=== PATIENT | female | born 1995 | race Caucasian/White ===

== ENCOUNTER 2022-12-09 12:41 | Emergency (ER) | payer BC, SELFPAY ==
[~2022-12-09] VITALS: Ht 152.4 cm; Wt 71.4 kg
[2022-12-09 12:43] VITALS: BP 142/82; TEMP 98.1; O2SAT 99
[2022-12-09] MEDS ORDERED: IBUP80TA PO (18:21)
== END 2022-12-09 18:44 | disposition home or self-care (01) ==
LOC: M ED 12:41
DX: S83.004A Unspecified dislocation of right patella, initial encounter (principal); W10.8XXA Fall (on) (from) other stairs and steps, initial encounter; Y92.009 Unspecified place in unspecified non-institutional (private) residence as the place of occurrence of the external cause

== ENCOUNTER 2022-12-14 08:57 | Emergency (ER) | payer SELFPAY ==
[~2022-12-14] VITALS: Ht 152.4 cm; Wt 71.4 kg
[~2022-12-14 08:57] MED LIST: IBUP80TA PO
[2022-12-14] MEDS ORDERED: KETOROLAC 30 MG/ML 1ML VIAL IM ONE (10:50)
[2022-12-14] MEDS ORDERED: PERCOCET 5MG/325MG TAB PO ONE (12:00)
[2022-12-14] MEDS ORDERED: PERC5TAB12 PO (12:01)
[2022-12-14] MEDS ORDERED: KETO10TAB PO (12:01)
[2022-12-14 12:21] VITALS: BP 126/84; TEMP 96.8; O2SAT 99
== END 2022-12-14 12:23 | disposition home or self-care (01) ==
LOC: M ED 08:57
DX: M25.561 Pain in right knee (principal); W10.9XXA Fall (on) (from) unspecified stairs and steps, initial encounter; Y92.009 Unspecified place in unspecified non-institutional (private) residence as the place of occurrence of the external cause
CPT/HCPCS: 73564; 96372; 99284; J1885

== ENCOUNTER 2023-09-19 12:08 | Emergency (ER) | payer BC, SELFPAY ==
[~2023-09-19] VITALS: Ht 152.4 cm; Wt 63.6 kg
[~2023-09-19 12:08] MED LIST changes: +KETO10TAB PO; +PERC5TAB12 PO
[2023-09-19] MEDS ORDERED: KETOROLAC 30 MG/ML 1ML VIAL IV ONE (16:40)
[2023-09-19] MEDS: LIDOCAINE 5% (LIDODERM) PATCH TD ONE (17:13)
[2023-09-19] MEDS: KETOROLAC 30 MG/ML 1ML VIAL IM ONE (17:14)
[2023-09-19 17:38] VITALS: BP 145/95; TEMP 99.1; O2SAT 97
== END 2023-09-19 17:25 | disposition home or self-care (01) ==
LOC: M ED 12:08
DX: M25.561 Pain in right knee (principal); W19.XXXA Unspecified fall, initial encounter; Y92.009 Unspecified place in unspecified non-institutional (private) residence as the place of occurrence of the external cause; Y93.9 Activity, unspecified; Y99.9 Unspecified external cause status
CPT/HCPCS: 73564; 96372; 99283; J1885

== ENCOUNTER → 2024-01-29 | Outpatient (REF) | payer BC | LOC: M LAB REF 16:12 | PROVIDERS: ATTEND Physician Assistant | DX: B34.9 Viral infection, unspecified (principal) ==

== ENCOUNTER → 2025-03-11 | Outpatient (REF) | payer BC | LOC: M LAB REF 16:35 | PROVIDERS: ATTEND Physician Assistant | DX: B34.9 Viral infection, unspecified (principal) ==

== ENCOUNTER 2025-05-16 10:28 | Emergency (ER) | payer BC ==
[~2025-05-16] VITALS: Ht 152.4 cm; Wt 85.0 kg
[2025-05-16] MEDS: ONDANSETRON 4MG ORAL DISINTEGRATING TAB PO ONE (12:34)
[2025-05-16] MEDS ORDERED: ONDA-282 PO (13:25)
[2025-05-16 13:29] VITALS: BP 144/82; TEMP 97.6; O2SAT 98
== END 2025-05-16 13:36 | disposition home or self-care (01) ==
LOC: M ED 10:28
DX: R11.2 Nausea with vomiting, unspecified (principal); R19.7 Diarrhea, unspecified

== ENCOUNTER → 2025-05-18 | Outpatient (CLI) | payer BC ==
[~2025-05-18] MED LIST changes: +ONDA-282 PO
== END ==
LOC: M OUTALCOH 13:59
PROVIDERS: ATTEND Psychiatry & Neurology Psychiatry
DX: F10.20 Alcohol dependence, uncomplicated (principal); F12.10 Cannabis abuse, uncomplicated; F17.200 Nicotine dependence, unspecified, uncomplicated

== ENCOUNTER 2025-05-30 15:52 | Outpatient (RCR) | payer BC | END 2025-06-15 | LOC: M OUTALCOH 15:52 | PROVIDERS: ATTEND Psychiatry & Neurology Psychiatry | DX: F10.20 Alcohol dependence, uncomplicated (principal); F12.10 Cannabis abuse, uncomplicated; F17.200 Nicotine dependence, unspecified, uncomplicated ==